=== PATIENT | male | born 1945 | race Two or more races ===

== ENCOUNTER 2023-03-18 19:01 | Emergency (ER) | payer OTHER ==
[~2023-03-18] VITALS: Ht 180.3 cm; Wt 114.5 kg
[2023-03-18 20:31] LABS: Basophils # (auto) 0.1 10 ^3/uL (0-0.2); Basophils % (auto) 1.3 % (0.0-2.0); Eosinophils # (auto) 0.4 10 ^3/uL (0-0.8); Eosinophils % (auto) 4.9 % (0.0-7.0); Hematocrit 34.6 % (41.0-53.0); Hemoglobin 11.8 g/dL (13.5-17.5); Lymphocytes # (auto) 1.9 10 ^3/uL (0.4-5.4); Lymphocytes % (auto) 23.1 % (10.0-50.0); Mean Corpuscular Hgb Conc. 34.2 g/dL (32.0-36.0); Mean Corpuscular Volume 84.7 fL (80.0-100.0); Monocytes # (auto) 0.6 10 ^3/uL (0-1.3); Neutrophils # (auto) 5.1 10 ^3/uL (1.6-8.6); Neutrophils % (auto) 62.7 % (37.0-80.0); Nucleated Red Blood Cells % 0.1 %; Red Blood Cells 4.08 10^6/uL (4.5-5.90); Red Cell Distribution Width 14.9 % (11.8-14.3); White Blood Cell 8.1 10^3/uL (4.4-10.8)
[2023-03-18 20:55] LABS: Partial Thromboplastin Time 54.2 SEC (24.5-34.5)
[2023-03-18 20:58] LABS: Alkaline Phosphatase 82 U/L (45-117); Anion Gap 9 (5-15); Aspartate Aminotransferase 24 U/L (15-37); Blood Urea Nitrogen 28 mg/dL (7-18); Carbon Dioxide 27 mmol/L (21-32); Chloride 100 mmol/L (98-107); GFR African American 63 mL/min; GFR Non-African American 52 mL/min; Glucose 101 mg/dL (74-106); Potassium 3.1 mmol/L (3.5-5.1); Sodium 136 mmol/L (136-145)
[2023-03-18 20:59] LABS: Alanine Aminotransferase 14 U/L (16-61); Albumin 3.4 g/dL (3.4-5.0); Bilirubin, Total 0.5 mg/dL (0.2-1.0); Calcium 8.1 mg/dL (8.5-10.1); Total Protein 7.3 g/dL (6.4-8.2)
[2023-03-18 21:00] LABS: INR 4.78 (0.9-1.15)
[2023-03-18 22:04] LABS: Magnesium 2.4 mg/dL (1.6-2.6)
[2023-03-18] MEDS ORDERED: IOHEXOL 350 MG/ML 100ML IJ ONE (22:41)
[2023-03-19 03:08] VITALS: BP 101/58
== END 2023-03-19 03:33 | disposition short-term general hospital (02) ==
LOC: EDBD 19:01 → ER 19:01
DX: R42 Dizziness and giddiness (principal); K86.9 Disease of pancreas, unspecified; I48.91 Unspecified atrial fibrillation
CPT/HCPCS: 36415; 70450; 71260; 72125; 74177; 80053; 80320; 83735; 83880; 84484; 85025; 85379; 85610; 85730; 93005; 99285; Q9967

== ENCOUNTER 2023-05-04 11:41 | Emergency (ER) | payer OTHER ==
[~2023-05-04] VITALS: Ht 172.7 cm; Wt 115.0 kg
[2023-05-04] MEDS ORDERED: SODIUM CHLORIDE 0.9% 1,000 ML IV ONE (12:15)
[2023-05-04 13:54] LABS: Eosinophils # (auto) 0 10 ^3/uL (0-0.8); Eosinophils % (auto) 0.1 % (0.0-7.0); Monocytes # (auto) 0.8 10 ^3/uL (0-1.3); Red Cell Distribution Width 15.6 % (11.8-14.3)
[2023-05-04 13:57] LABS: Basophils # (auto) 0.1 10 ^3/uL (0-0.2); Basophils % (auto) 0.4 % (0.0-2.0); Hematocrit 32.4 % (41.0-53.0); Hemoglobin 10.6 g/dL (13.5-17.5); Lymphocytes # (auto) 1.8 10 ^3/uL (0.4-5.4); Lymphocytes % (auto) 12.2 % (10.0-50.0); Mean Corpuscular Hemoglobin 26.7 pg (28.0-32.0); Mean Corpuscular Hgb Conc. 32.6 g/dL (32.0-36.0); Mean Corpuscular Volume 81.9 fL (80.0-100.0); Monocytes % (auto) 5.2 % (0.0-12.0); Neutrophils # (auto) 12.2 10 ^3/uL (1.6-8.6); Neutrophils % (auto) 82.1 % (37.0-80.0); Red Blood Cells 3.95 10^6/uL (4.5-5.90); White Blood Cell 14.8 10^3/uL (4.4-10.8)
[2023-05-04 14:17] LABS: Albumin 3.2 g/dL (3.4-5.0); Calcium 8.3 mg/dL (8.5-10.1); Partial Thromboplastin Time 58.7 SEC (24.5-34.5); Potassium 4.2 mmol/L (3.5-5.1)
[2023-05-04 14:22] LABS: BUN/Creatinine Ratio 13.2 (10.0-20.0); Bilirubin, Total 0.6 mg/dL (0.2-1.0)
[2023-05-04 14:34] LABS: INR > 8.0 (0.9-1.15)
[2023-05-04] MEDS ORDERED: PHYTONADIONE (VIT K)10 MG/ML 1ML VIAL SUBCUT ONE (14:45)
[2023-05-04 15:00] VITALS: PULSE 80; RESP 20; O2SAT 94
[2023-05-04] MEDS ORDERED: cefTRIAXone 1GM/50ML D5W 50 ML IV ONE (17:45)
[2023-05-04] MEDS ORDERED: metroNIDAZOLE 500MG/100ML 100 ML IV ONE (17:45)
[2023-05-04 18:45] VITALS: BP 128/62; PULSE 72; RESP 16; TEMP 98; O2SAT 93
== END 2023-05-04 16:26 | disposition short-term general hospital (02) ==
LOC: ER 11:41 → EDBD 11:41 → ER 16:26
DX: K92.2 Gastrointestinal hemorrhage, unspecified (principal); R06.02 Shortness of breath
CPT/HCPCS: 36415; 71045; 74176; 80053; 83880; 84484; 85025; 85610; 85730; 96361; 96365; 96367; 96372; 99285; J0696; J3430; J3490; J7030

== ENCOUNTER 2023-05-11 13:18 | Emergency (ER) | payer OTHER ==
[~2023-05-11] VITALS: Ht 180.3 cm; Wt 120.0 kg
[2023-05-11 17:21] VITALS: BP 122/58; PULSE 60; RESP 16; TEMP 99.8; O2SAT 97
== END 2023-05-11 17:23 | disposition home or self-care (01) ==
LOC: ER 13:18
DX: S83.92XA Sprain of unspecified site of left knee, initial encounter (principal); I48.91 Unspecified atrial fibrillation; X58.XXXA Exposure to other specified factors, initial encounter; Y93.89 Activity, other specified; Y92.89 Other specified places as the place of occurrence of the external cause; Y99.8 Other external cause status
CPT/HCPCS: 93971

== ENCOUNTER 2023-06-26 23:21 | Emergency (ER) | payer OTHER ==
[~2023-06-26] VITALS: Ht 180.3 cm; Wt 106.4 kg
[2023-06-26 23:54] LABS: Basophils # (auto) 0.1 10 ^3/uL (0-0.2); Eosinophils # (auto) 0.1 10 ^3/uL (0-0.8); Hematocrit 29.1 % (41.0-53.0); Hemoglobin 9.5 g/dL (13.5-17.5); Lymphocytes # (auto) 0.8 10 ^3/uL (0.4-5.4); Lymphocytes % (auto) 9.1 % (10.0-50.0); Mean Corpuscular Hemoglobin 27.4 pg (28.0-32.0); Mean Corpuscular Hgb Conc. 32.6 g/dL (32.0-36.0); Mean Corpuscular Volume 84.1 fL (80.0-100.0); Monocytes # (auto) 0.6 10 ^3/uL (0-1.3); Neutrophils # (auto) 7.3 10 ^3/uL (1.6-8.6); Neutrophils % (auto) 81.9 % (37.0-80.0); Red Blood Cells 3.46 10^6/uL (4.5-5.90); Red Cell Distribution Width 24.3 % (11.8-14.3); White Blood Cell 8.9 10^3/uL (4.4-10.8)
[2023-06-27] MEDS ORDERED: ALBUTEROL SULF 2.5 MG/0.5ML(0.5%) NEB SOLN NEB ONE
[2023-06-27 00:13] LABS: Anisocytosis Moderate; Ovalocytes FEW; Platelet Estimate Adequate; Stomatocytes Few
[2023-06-27 00:14] LABS: Alanine Aminotransferase 69 U/L (7-40); Alkaline Phosphatase 601 U/L (46-116); Anion Gap 4 (5-15); Aspartate Aminotransferase 152 U/L (13-40); BUN/Creatinine Ratio 12.6 (10.0-20.0); Bilirubin, Total 0.9 mg/dL (0.2-1.0); Blood Urea Nitrogen 11 mg/dL (9-23); Carbon Dioxide 26 mmol/L (20-30); Chloride 106 mmol/L (98-107); Glucose 136 mg/dL (74-106); Magnesium 1.8 mg/dL (1.6-2.6); Potassium 4.1 mmol/L (3.5-5.1); Sodium 136 mmol/L (136-145); Total Protein 6.1 g/dL (5.7-8.2)
[2023-06-27 00:15] LABS: INR 2.42 (0.9-1.15); Partial Thromboplastin Time 39.2 SEC (24.5-34.5)
[2023-06-27 01:00] VITALS: PULSE 84; RESP 22; O2SAT 96
[2023-06-27] MEDS ORDERED: FUROSEMIDE 40 MG/4 ML VIAL IV ONE (06:15)
[2023-06-27 06:49] LABS: Urine Bacteria NONE SEEN /hpf (None Seen); Urine Blood 2+ /uL (Negative); Urine Clarity Clear (Clear); Urine Color Yellow (Yellow); Urine Protein, UAD TRACE (Negative); Urine WBC 3 /hpf (0 - 3); Urine pH 5.5 (5.0-8.0)
[2023-06-27 06:54] LABS: Urine Specific Gravity > 1.050 (1.001-1.035)
[2023-06-27 07:54] VITALS: PULSE 55; RESP 17; O2SAT 98
[2023-06-27 09:57] LABS: COVID19 ANTIGEN SOFIA FIA NEGATIVE (NEGATIVE)
[2023-06-27 12:46] VITALS: BP 121/59; PULSE 54; RESP 15; TEMP 98.2; O2SAT 98
== END 2023-06-27 13:15 | disposition short-term general hospital (02) ==
LOC: EDBD 23:21 → ER 23:22
DX: B17.9 Acute viral hepatitis, unspecified (principal); R06.02 Shortness of breath; I48.91 Unspecified atrial fibrillation; E11.9 Type 2 diabetes mellitus without complications; R07.89 Other chest pain; Z20.822 Contact with and (suspected) exposure to COVID-19
CPT/HCPCS: 36415; 71045; 74177; 80053; 80329; 81001; 83605; 83735; 83880; 84484; 85025; 85610; 85730; 87040; 87077; 87186; 87426; 93005; 94640; 99285; Q9967